=== PATIENT | male | born 1975 | race Caucasian/White ===

== ENCOUNTER 2016-12-19 23:19 | Emergency (ER) | payer SELFPAY ==
[~2016-12-19] VITALS: Ht 167.6 cm; Wt 90.9 kg
[2016-12-19 23:21] VITALS: BP 126/85; PULSE 88; RESP 16; O2SAT 99
--- NOTE | 2016-12-19 23:41 | ED.REPORT ---
HPI-Rash / Abscess Date of Service Dec 19, 2016 ED Provider: Luis Meehan DO A 41 year old male with a history of diabetes presents to the ED complaining of a possible insect bite on his left arm. The pt was at work two days ago when he felt a "sting." When he looked at the area, he noticed a pimple that he tried to squeeze. Since that time, the area has become swollen, red and painful. Nursing Notes Stated Complaint: POSSIBLE BITE ON LEFT ARM Chief Complaint: Skin Rash/Abscess Nursing Notes Reviewed: Yes Allergies: Coded Allergies: No Known Allergies (Unverified , 12/19/16) General Time Seen by MD: 23:41 Chief Complaint Other (Possible insect bite) Hx Obtained From: Patient Arrived By: Walk-in Onset Occurred: 2 days ago Symptom Duration: Since onset Recent Healthcare: No recent doctor visit, No recent hospitalization Similar Sx Previous: No Past Medical History Past Medical History diabetes Past Surgical History none reported Smoking History Unknown if Ever Smoker Social History visiting from [place] Other Social History: Good social support Ambulatory Status Independent Review of Systems Review of Systems Note: possible insect bite, left arm Respiratory: Denies: Non-productive cough, Shortness of breath Cardiovascular: Denies: Chest pain GI: Denies: Abdominal pain, Vomiting Musculoskeletal: Reports: Extremity pain, Denies: Back pain, Neck pain Complete sys rev & neg: except as marked. Physical Exam Initial Vital Signs Vital Signs (First) Date Time Temp Pulse Resp B/P Pulse Ox O2 Delivery O2 Flow Rate FiO2 12/19/16 23:21 36.5 88 16 126/85 99 Room Air Initial VS: Reviewed General/Constitutional: Awake, Alert Skin: Warm, Dry abscess with cell and lymphangitis over the left proximal biceps on the anterior surface Head / Eyes: Atraumatic, Normocephalic, PERRL, EOMI ENT: Atraumatic, Airway patent, Mucous membranes moist Respiratory / Chest: Atraumatic, Breath sounds NL, Breath sounds = bilat, No respiratory distress Cardiovascular: Heart rate NL, Regular rhythm, Heart sounds NL Upper Extremity / MS: Neurologic intact, Vascular intact Lower Extremity / Pelvis / MS: Atraumatic, Full range of motion Neurologic: Oriented X3, Speech NL, No motor deficits, No sensory deficits Neck: Atraumatic, Supple, Full range of motion Back: Atraumatic, Full range of motion Psychiatric: Affect NL, Mood NL Interpretation & Diagnostics Lab Results Interpretation Result Diagram: 12/19/16 2359 12/19/16 2359 Test 12/19/16 23:59 White Blood Count 10.5th/mm3 (3.8-10.1) Red Blood Count 5.36mil/mm3 (4.40-5.80) Hemoglobin 16.4g/dL (13.8-17.2) Hematocrit 45.4% (41.0-50.0) Mean Corpuscular Volume 84.7fL (81-100) Mean Corpuscular Hemoglobin 30.6pg (27.0-35.0) Mean Corpuscular Hemoglobin Concent 36.1% (32.0-37.0) Red Cell Distribution Width 14.2% (12.3-15.4) Platelet Count 287bil/L (150-400) Neutrophils (%) (Auto) 61.3% (40-74) Lymphocytes (%) (Auto) 24.4% (14-46) Monocytes (%) (Auto) 8.1% (4-12) Eosinophils (%) (Auto) 5.3% (0-5) Basophils (%) (Auto) 0.6% (0-3) Sodium Level 139mEq/L (134-144) Potassium Level 3.6mEq/L (3.5-5.2) Chloride Level 100mEq/L (97-108) Carbon Dioxide Level 21mmol/L (18-29) Blood Urea Nitrogen 20mg/dL (6-24) Creatinine 0.89mg/dL (0.76-1.27) Estimat Glomerular Filtration Rate 101mL/min (>59) Glucose Level 127mg/dL (60-99) Calcium Level 9.5mg/dL (8.5-10.1) Hold Turner Top Tube Received (Received) Pulse Oximetry Interpretation Pulse Oximetry Interpretation: 99% on room air Pulse Oximetry: Pulse Ox normal Procedures Incision & Drainage Abscess Time: 00:24 Procedure Performed by: ED physician Location of Abscess: left proximal biceps on the anterior surface Skin Preparation Agent: Hibiclens - Chlorhexidine Local Anesthesia: Lidocaine 1% Incised Abscess with Scalpel: #15 Pus Drained: Small Irrigation: Yes Post-Procedure / Complications: Packing placed, Dressing applied, No complications, Condition improved, Tolerated procedure well, Patient stable Re-Eval/Medical Decision Med Decision/Clinical Course The abscess was drained under meticulous sterile technique. No neurovascular compromise. Tolerated the procedure well. Course of doxycycline prescribed. Routine opiate warnings given. Source of Hx: Old records Re-Evaluation/Progress : Time of Eval: 00:24 Re-Evaluation/Progress Note: Pt rechecked and I&D procedure is performed without complication. The diagnosis and plan for discharge are discussed. The pt understands and agrees with the plan. All questions are addressed at this time. Counseled Regarding: Diagnosis, Need for follow-up, When/why to return to ED Discharge & Departure Impression: Primary Impression: Abscess Disposition: Home Discharge Condition All VS Reviewed: Yes Condition: Stable Patient Instructions: Abscess (ED) Additional Instructions: Take doxycycline twice daily for seven days. Take Augmentin twice daily for seven days. Take 1 to 2 Percocet every 6 hours as needed for severe pain. Do not drink, drive, or consume acetaminophen while taking the Percocet. Have a wound check in 48 hours either in the emergency department or in Urgent Care. Return to the emergency department if you develop any new or worsening symptoms. Referrals: [facility] Scribe Attestation Portions of this note were transcribed by Erin Rodriguez. I, Dr. Meehan personally performed the history, physical exam and medical decision-making; I reviewed and confirmed the accuracy of the information in the transcribed note. Signed by: Beatrice Majano, 12/20/2016 and 0045. copies to: [facility] Luis Meehan DO Dec 19, 2016 23:41 ERIN RODRIGUEZ Dec 19, 2016 23:54
[2016-12-19] MEDS ORDERED: HYDROmorphone 0.5 mg/0.5 mL iSecure Syringe IVPUSH PRN (23:50)
[2016-12-19] MEDS ORDERED: Lidocaine 1% 50 mL Inj NERVEBLOCK ONE (23:50)
[2016-12-19] MEDS ORDERED: Clindamycin Inj 900 MG in IV Premix 1 EACH IV ONE (23:50)
[2016-12-20] MEDS ORDERED: Sodium Chloride LOK Flush 10 mL Syringe IVFLUSH SCH (00:30)
[2016-12-20] MEDS ORDERED: _oxyCODONE/APAP 5-325 mg Tablet PO PRN (00:35)
[2016-12-20 00:58] LABS: BASOPHILS % (AUTO) 0.6 % (0-3); EOSINOPHILS % (AUTO) 5.3 % (0-5); MONOCYTES % (AUTO) 8.1 % (4-12); Mean Corpuscular Hemoglobin 30.6 pg (27.0-35.0); Mean Corpuscular Volume 84.7 fL (81-100); NEUTROPHILS % (AUTO) 61.3 % (40-74); Platelet Count 287 bil/L (150-400)
[2016-12-20 01:37] VITALS: BP 129/88; PULSE 87; RESP 17; O2SAT 94
== END 2016-12-20 01:38 | disposition home or self-care (01) ==
LOC: SED 23:19
DX: L02.414 Cutaneous abscess of left upper limb (principal); E11.9 Type 2 diabetes mellitus without complications
CPT/HCPCS: 10061; 36415; 80048; 85025; 96365; 96375; 99284; J1170; J3490

== ENCOUNTER 2016-12-21 17:24 | Emergency (ER) | payer MEDICAID ==
[~2016-12-21] VITALS: Ht 167.6 cm; Wt 90.0 kg
[2016-12-21 17:44] VITALS: BP 109/74; PULSE 104; RESP 16; O2SAT 98
--- NOTE | 2016-12-21 18:12 | ED.REPORT ---
HPI-Rash / Abscess Date of Service Dec 21, 2016 ED Provider: Zoran Smith DO Pt is a 41 year old male with a history of DM who presents to the ED complaining of abscess to the left upper arm. He c/o associated increased itching and erythema that is radiating down his left arm to the elbow. The pt presented to the ED on 12/19/16 and was diagnosed with abscess. He was prescribed Augmentin, Doxycycline, and Percocet, however, he reports that he didn't start taking the antibiotics until today. He reports that pain medication has provided no relief. Nursing Notes Stated Complaint: BIT Chief Complaint: Skin Rash/Abscess Nursing Notes Reviewed: Yes Allergies: Coded Allergies: No Known Allergies (Unverified , 12/19/16) General Time Seen by MD: 18:12 Chief Complaint Abscess Hx Obtained From: Patient Arrived By: Walk-in Onset Occurred: 2 days ago Symptom Duration: Since onset Location: : Forearm Quality: Painful Severity: Current: Moderate Severity: Maximum: Moderate Recent Healthcare: Recent doctor visit Similar Sx Previous: Yes Past Medical History Past Medical History diabetes Past Surgical History none reported Smoking History Unknown if Ever Smoker Social History visiting from [place] Other Social History: Good social support Ambulatory Status Independent Review of Systems Constitutional: Denies: Fever Musculoskeletal: Reports: Extremity pain Skin: Reports Itching, Reports Swelling Complete sys rev & neg: except as marked. Physical Exam Initial Vital Signs Vital Signs (First) Date Time Temp Pulse Resp B/P Pulse Ox O2 Delivery O2 Flow Rate FiO2 12/21/16 17:44 36.8 104 16 109/74 98 Room Air Initial VS: Reviewed Head / Eyes: Atraumatic, Normocephalic Neck: Supple, Full range of motion Respiratory: Breath sounds normal, Clear to auscultation, No respiratory distress Cardiovascular: Regular rate & rhythm, Heart sounds normal, Intact distal pulses Abdomen / GI: Soft, Non-tender Neurologic: Alert, Oriented, Nonfocal Psychiatric: Mood/affect normal, Behavior normal General/Constitutional: Awake, Alert Skin: Warm, Dry, Intact Upper Extremity / MS: Neurologic intact, Vascular intact Cellulitus of left arm; abscess may need to be drained again. Interpretation & Diagnostics Lab Results Interpretation Result Diagram: 12/21/16 1900 12/21/16 190 Test 12/21/16 19:00 White Blood Count 9.1th/mm3 (3.8-10.1) Red Blood Count 5.35mil/mm3 (4.40-5.80) Hemoglobin 16.5g/dL (13.8-17.2) Hematocrit 45.7% (41.0-50.0) Mean Corpuscular Volume 85.4fL (81-100) Mean Corpuscular Hemoglobin 30.8pg (27.0-35.0) Mean Corpuscular Hemoglobin Concent 36.1% (32.0-37.0) Red Cell Distribution Width 14.1% (12.3-15.4) Platelet Count 284bil/L (150-400) Neutrophils (%) (Auto) 60.7% (40-74) Lymphocytes (%) (Auto) 23.7% (14-46) Monocytes (%) (Auto) 8.3% (4-12) Eosinophils (%) (Auto) 6.4% (0-5) Basophils (%) (Auto) 0.7% (0-3) Sodium Level 139mEq/L (134-144) Potassium Level 3.8mEq/L (3.5-5.2) Chloride Level 102mEq/L (97-108) Carbon Dioxide Level 21mmol/L (18-29) Blood Urea Nitrogen 17mg/dL (6-24) Creatinine 0.94mg/dL (0.76-1.27) Estimat Glomerular Filtration Rate 94mL/min (>59) Glucose Level 155mg/dL (60-99) Lactic Acid Level 1.7mmol/L (0.4-2.0) Calcium Level 9.6mg/dL (8.5-10.1) Total Bilirubin 0.2mg/dL (0.0-1.2) Aspartate Amino Transf (AST/SGOT) 18U/L (0-50) Alanine Aminotransferase (ALT/SGPT) 21U/L (0-44) Alkaline Phosphatase 47U/L (25-150) Total Protein 7.9g/dL (6.4-8.4) Albumin 4.2g/dL (3.4-5.0) Re-Eval/Medical Decision Med Decision/Clinical Course After IV antibiotics most of the erythema in his arm is gone. I think actually elevating his arm helped the most. Laboratory work is reassuring. He has no brawny edema. There is no induration. The abscess was opened again. No purulent discharge. I think he is going to great now that he is on the oral antibiotic. I will recheck this tomorrow either here at the urgent care. Short course of Percocet prescribed for pain. Recommend close outpatient follow -up and good diabetic management. Routine opiate warnings given. Source of Hx: Old records Re-Evaluation/Progress : Time of Eval: 21:38 Patient Status: Condition improved Re-Evaluation/Progress Note: Pt rechecked. Informed pt of plan for discharge. Pt understands and agrees with plan for discharge. F/U instructions and RTER warnings given. All questions addressed. Counseled Regarding: Diagnosis, Lab results, Need for follow-up, When/why to return to ED Discharge & Departure Shift Change Sign-Out Response to Therapy: Improved Impression: Primary Impression: Cellulitis Site of cellulitis: extremity Site of cellulitis of extremity: upper extremity Laterality: left Qualified Code: L03.114 - Cellulitis of left upper limb Additional Impression: Abscess Disposition: Home Discharge Condition All VS Reviewed: Yes Condition: Stable Patient Instructions: Cellulitis (ED) Additional Instructions: Laboratory work today shows a white blood cell count is normalized. We need to give the oral antibiotics a chance to take effect. Take them as directed. Take them about 2 hours apart. Take the Augmentin at 8 in the morning and then the doxycycline roughly 10 in the morning and again at the same time in the evening. Elevate your arm all night. I think this needs to be rechecked tomorrow. Go to urgent care or come back to the emergency department or call the referral clinic. Take 1-2 Percocet every 6 hours as needed for pain. If the infection does not improve you may need another incision and drainage and possible admission for IV antibiotics. Do not drive or drink alcohol consume acetaminophen while taking the Percocet. Do not drive tonight. Referrals: [facility] Beatrice Attestation Portions of this note were transcribed by Elisa Valverde. I, Dr. Meehan personally performed the history, physical exam and medical decision-making; I reviewed and confirmed the accuracy of the information in the transcribed note. Signed by: Beatrice San, 12/21/16 and 19:30. copies to: [facility] Luis Meehan DO Dec 21, 2016 18:12 Elisa Lan Dec 21, 2016 18:24
[2016-12-21] MEDS ORDERED: Piperacillin-Tazo 3.375 Gm Inj 3.375 GM in Dextrose 5% Minibag Plus 50 ML IV ONE (18:40)
[2016-12-21 19:16] LABS: BASOPHILS % (AUTO) 0.7 % (0-3); EOSINOPHILS % (AUTO) 6.4 % (0-5); MONOCYTES % (AUTO) 8.3 % (4-12); Mean Corpuscular Hemoglobin 30.8 pg (27.0-35.0); Mean Corpuscular Volume 85.4 fL (81-100); NEUTROPHILS % (AUTO) 60.7 % (40-74); Platelet Count 284 bil/L (150-400)
[2016-12-21] MEDS ORDERED: HYDROmorphone 0.5 mg/0.5 mL iSecure Syringe IVPUSH ONE (19:20)
[2016-12-21] MEDS: HYDROmorphone 0.5 mg/0.5 mL iSecure Syringe IVPUSH PRN ×2 (20:28→21:39)
[2016-12-21] MEDS ORDERED: _oxyCODONE/APAP 5-325 mg Tablet PO PRN (21:40)
[2016-12-21 22:35] VITALS: BP 120/86; PULSE 88; RESP 16; O2SAT 92
[2016-12-21 22:36] VITALS: BP 120/86; PULSE 88; RESP 16; O2SAT 92
[2016-12-22] MEDS ORDERED: Sodium Chloride LOK Flush 10 mL Syringe IVFLUSH SCH (00:30)
== END 2016-12-21 22:36 | disposition home or self-care (01) ==
LOC: SED 17:24
DX: L03.114 Cellulitis of left upper limb (principal); L02.414 Cutaneous abscess of left upper limb; E11.9 Type 2 diabetes mellitus without complications; I10 Essential (primary) hypertension; Z87.19 Personal history of other diseases of the digestive system
CPT/HCPCS: 36415; 80053; 83605; 85025; 96365; 96367; 96375; 96376; 99284; J1170; J2543; J3370; J7060